=== PATIENT | female | born 1955 | race Caucasian/White ===

== ENCOUNTER → 2018-07-14 | Outpatient (CLI) | payer BC | LOC: RAD 17:31 | DX: M41.84 Other forms of scoliosis, thoracic region (principal); R07.81 Pleurodynia ==

== ENCOUNTER 2021-10-13 13:45 | Emergency (ER) | payer BC ==
[~2021-10-13] VITALS: Ht 154.9 cm; Wt 61.2 kg
[2021-10-13 13:48] VITALS: BP 154/98
== END 2021-10-13 14:42 | disposition home or self-care (01) ==
LOC: ER 13:45
DX: Z20.822 Contact with and (suspected) exposure to COVID-19 (principal); Z88.5 Allergy status to narcotic agent